=== PATIENT | male | born 1950 | race Caucasian/White ===

== ENCOUNTER 2017-10-03 14:09 | Inpatient (IN) | payer OTHER ==
[~2017-10-03] VITALS: Ht 167.6 cm; Wt 68.7 kg
[~2017-10-03 14:09] MED LIST: Augmentin PO; Ecotrin PO; Procardia XL,Adalat PO; Zocor PO; predniSONE PO
[2017-10-03 15:01] LABS: HEMATOCRIT 47.2 % (38.0-50.0); HEMOGLOBIN 16.2 G/DL (12.5-16.6); MCH 30.9 PG (29.0-34.0); MCHC 34.3 G/DL (30.0-36.0); MCV 89.9 FL (86-99); PLATELET COUNT 340 K/uL (156-360); RBC DIS.WIDTH-CV 12.9 % (11.8-14.6); RBC DIS.WIDTH-SD 42.5 % (39-53); RED BLOOD COUNT 5.25 M/uL (4.00-5.50); WHITE BLOOD COUNT 18.6 K/uL (4.1-10.2)
[2017-10-03 15:19] LABS: CHLORIDE 102 mEq/L (99-109); POTASSIUM 3.5 mEq/L (3.7-5.4); SODIUM 144 mEq/L (136-147)
[2017-10-03 15:21] LABS: GLUCOSE 132 mg/dL (70-99)
[2017-10-03 15:24] LABS: CREATININE 1.6 mg/dL (0.6-1.3); GFR ESTIMATE (CALCULATED) 46 mL/min/ (58.99-99999)
[2017-10-03 15:25] LABS: UREA NITROGEN (BUN) 34 mg/dL (9-23)
[2017-10-03 15:27] LABS: TROP-I INTERPRETATION POSITIVE
[2017-10-03 15:35] LABS: TROPONIN-I 0.61 ng/mL (0.0-0.30)
[2017-10-03] MEDS ORDERED: HYDROCHLOROTHIA25 MG PO (16:46)
[2017-10-03] MEDS ORDERED: NORVASC10 MG PO (16:47)
[2017-10-03] MEDS ORDERED: LITE COAT ASPI325 M1 PO (16:50)
[2017-10-03 19:42] VITALS: BP 130/78
[2017-10-03 19:45] VITALS: BP 130/78
[2017-10-03 21:40] LABS: TROP-I INTERPRETATION POSITIVE
== END 2017-10-03 21:40 ==
LOC: EME 14:09 → EDOF 16:35 → 4WEST 16:35 → ENRESERV 16:37 → 4EAST 19:40 → ENRESERV 20:52 → 4WEST 20:56
PROVIDERS: Internal Medicine
DX: I21.09 ST elevation (STEMI) myocardial infarction involving other coronary artery of anterior wall (principal); R57.0 Cardiogenic shock; I44.2 Atrioventricular block, complete; N17.9 Acute kidney failure, unspecified; I10 Essential (primary) hypertension; N32.89 Other specified disorders of bladder; D72.829 Elevated white blood cell count, unspecified; E87.6 Hypokalemia; Z82.49 Family history of ischemic heart disease and other diseases of the circulatory system
CPT/HCPCS: 71046; 80048; 80048 91; 81003; 82948; 83605; 84484; 85025; 85027; 85730; 87641; 92950; 93005; 99281; 99285; J0171; J0461; J1265; J1644; J1650; J2250; J3010; J7040